=== PATIENT | male | born 1995 | race Caucasian/White ===

== ENCOUNTER 2022-01-07 14:45 | Emergency (ER) | payer OTHER, SELFPAY ==
[2022-01-07 14:51] VITALS: BP 161/88; PULSE 91; RESP 16; TEMP 36.7; O2SAT 99
--- NOTE | 2022-01-07 15:46 | ED_ITS ---
HPI - Eye Problem General Chief complaint: Eye Problems Stated complaint: metal fragments in his eye Time Seen by Provider: 01/07/22 15:03 History of Present Illness HPI Narrative: Patient is a 26-year-old male who presents ER with concerns for metal in his eye. 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 While at work they washed his eye. While driving home he was blinking and had some disruption in his vision. It has since improved. No pain in his eye. No blurred vision or photophobia. Related Data Home Medications Medication Instructions Recorded Confirmed No Home Medications 01/07/22 01/07/22 Allergies Allergy/AdvReac Type Severity Reaction Status Date / Time No Known Allergies Allergy Unknown Verified 01/07/22 15:26 Review of Systems Eyes: Eyes: Reports change in vision (Transient) and Denies photophobia Comments: No eye pain Integumentary/Breasts: Skin/Breast: Denies erythema and Denies rash Neurologic: Denies headache(s) PMFSH Past Medical History Medical History (Updated 01/07/22 @ 15:56 by Mook Morrison MD) Healthy adult male Surgical History Surgical History (Updated 01/07/22 @ 15:54 by Mook Morrison MD) History of appendectomy Social History Social History (Updated 01/07/22 @ 15:54 by Mook Morrison MD) Smoking status: Never smoker Exam Narrative: GENERAL: Well-appearing, well-nourished, and in no acute distress. HEAD: Normocephalic, atraumatic. EYES: PERRLA and EOMI. right eye visualized with magnification and lid eversion performed. No evidence of foreign body or corneal abrasion. Patient has visual acuity is 20/20 in each eye. ENT: Mucous membranes moist. NEURO: Alert and oriented x3. PSYCH: Normal mood and affect. Course Course Emergency Course: Patient informed of exam findings. No pain or change in vision. No evidence of abrasion. Iritis not felt to be the cause of his transient blurred vision that occurred for a couple seconds while blinking. Discharge home. Vital Signs Vital signs: Vital Signs Temperature 98.0 F 01/07/22 14:51 Pulse Rate 91 01/07/22 14:51 Respiratory Rate 16 01/07/22 14:51 Blood Pressure 161/88 H 01/07/22 14:51 Pulse Oximetry 99 01/07/22 14:51 Temperature 98.0 F 01/07/22 14:51 Pulse Rate 91 01/07/22 14:51 Respiratory Rate 16 01/07/22 14:51 Blood Pressure 161/88 H 01/07/22 14:51 Pulse Oximetry 99 01/07/22 14:51 Discharge Plan Discharge Clinical Impression: Transient vision disturbance Patient Disposition: Home, Self-Care Condition: Stable Instructions: Blurred Vision (ED) Additional Instructions: Return to the ER if you have severe pain in your eye, you cannot see, you lose consciousness, or you have additional concerns. Prescriptions: No Action No Home Medications RF: 0 Follow-up/Referrals: PHYSICIAN,DEICER FINISHER [Primary Care Provider] - Naveed Still MD [Physician] - 1 Week
[2022-01-07] MEDS: DACRIOSE EYE IRRIGATION 118 ML BOTTLE (15:50)
[2022-01-07] MEDS: FLUORESCEIN SOD 1 MG/STRIP EACH EYE (15:50)
== END 2022-01-07 16:19 | disposition home or self-care (01) ==
PROVIDERS: Emergency Provider Emergency Medicine
DX: H53.9 Unspecified visual disturbance (principal)
CPT/HCPCS: 99283; A9270

== ENCOUNTER 2022-07-25 04:47 | Emergency (ER) | payer OTHER, SELFPAY ==
[2022-07-25 04:50] VITALS: BP 145/98; PULSE 92; RESP 17; TEMP 36.7; O2SAT 99
--- NOTE | 2022-07-25 06:18 | ED.GENADULT ---
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 Patient was working with a cutting device yesterday when he had some silver fly under his mask into his eye. After that he was having some swelling of his eyelid and irritation to the eye as well as a foreign body sensation. Related Data Allergies Allergy/AdvReac Type Severity Reaction Status Date / Time No Known Allergies Allergy Unknown Verified 07/25/22 04:53 Review of Systems Review of Systems: CONSTITUTIONAL: Denies night sweats. EYES: No eye pain ENT: Denies rhinorrhea CARDIOVASCULAR: Denies palpitations RESPIRATORY: Denies hemoptysis GASTROINTESTINAL: Denies hematemesis GENITOURINARY: Denies hematuria. SKIN: Denies rash MUSCULOSKELETAL: Denies myalgia. NEUROLOGIC: Denies weakness. PSYCHIATRIC: Denies delusions PMFSH Past Medical History Medical History Healthy adult male Surgical History Surgical History History of appendectomy Social History Social History Smoking status: Never smoker Exam Narrative: APPEARANCE: No apparent distress. Head: atraumatic. EYES: EOMI, no pain with extraocular eye movement.patient has eyelid swelling of the left eye, Underneath the upper eyelid there is an 1mm x 1mm area of pus with some irritation of the skin underneath. no significant dye uptake on slit-lamp exam. No flare in the anterior chamber. Intra-ocular pressure was 26. NOSE: Atraumatic NECK: Trachea midline RESPIRATORY: No increased rate of breathing CARDIOVASCULAR: RRR, ABDOMINAL: Non-distended MUSCULOSKELETAl: No obvious deformities NEURO: Alert. Moving 4/4 extremities SKIN:: Warm, dry. Normal color PSYCHIATRIC: Normal affect Course Vital Signs Vital signs: Vital Signs Temperature 98.0 F 07/25/22 04:50 Pulse Rate 92 07/25/22 04:50 Respiratory Rate 17 07/25/22 04:50 Blood Pressure 145/98 H 07/25/22 04:50 Pulse Oximetry 99 07/25/22 04:50 Oxygen Delivery Room Air 07/25/22 04:50 Temperature 98.0 F 07/25/22 04:50 Pulse Rate 92 07/25/22 04:50 Respiratory Rate 17 07/25/22 04:50 Blood Pressure 145/98 H 07/25/22 04:50 Pulse Oximetry 99 07/25/22 04:50 Oxygen Delivery Room Air 07/25/22 04:50 Medical Decision Making MDM Narrative Medical decision making narrative: This is a 26-year-old male presenting ED with foreign body sensation in his left eye. Exam of the eye revealed a small area of irritation on the underneath his upper eyelid. This was removed the patient says that the foreign body sensation is gone. Did not see any dye of uptake on eye exam. He does have mildly elevated intra-ocular pressures. His visual acuity is now normal. Patient will be discharged with 24 hour ophthalmology follow-up. Patient will be given Ocuflox eyedrops as well as a course of Keflex for preseptal cellulitis. Vital Signs Vital Signs: Vital Signs Temperature 98.0 F 07/25/22 04:50 Pulse Rate 92 07/25/22 04:50 Respiratory Rate 17 07/25/22 04:50 Blood Pressure 145/98 H 07/25/22 04:50 Pulse Oximetry 99 07/25/22 04:50 Oxygen Delivery Room Air 07/25/22 04:50 Temperature 98.0 F 07/25/22 04:50 Pulse Rate 92 07/25/22 04:50 Respiratory Rate 17 07/25/22 04:50 Blood Pressure 145/98 H 07/25/22 04:50 Pulse Oximetry 99 07/25/22 04:50 Oxygen Delivery Room Air 07/25/22 04:50 Discharge Plan Discharge Clinical Impression: Foreign body of eyelid, Preseptal cellulitis Patient Disposition: Home, Self-Care Condition: Guarded Prognosis Instructions: Antibiotic Form Additional Instructions: Please
[2022-07-25] MEDS: ACETAMINOPHEN 500 MG TABLET 1000 MG PO (06:40)
[2022-07-25] MEDS: IBUPROFEN 400 MG TABLET 800 MG PO (06:41)
[2022-07-25] MEDS: TETANUS,DIPHTHERIA,AC PERTUSSIS ADULT (0.5 ML) BOOSTRIX IM (06:41)
== END 2022-07-25 06:52 | disposition home or self-care (01) ==
PROVIDERS: Emergency Provider Emergency Medicine
DX: L03.213 Periorbital cellulitis (principal); T15.12XA Foreign body in conjunctival sac, left eye, initial encounter; Z23 Encounter for immunization
CPT/HCPCS: 65205; 65220; 90471; 90715; 99283; A9270

== ENCOUNTER 2023-09-06 18:48 | Emergency (ER) | payer OTHER, SELFPAY ==
--- NOTE | ~2023-09-06 | CT_ITS ---
EXAMINATION: CT brain wo con DATE: 09/06/2023 20:13 INDICATION: Head injury. TECHNIQUE: Computed tomography (CT) of the head was performed without intravenous contrast. The mA wa s adjusted according to patient size. Iterative reconstruction technique was employed. The dose-lengt h product was 681.00 mGy-cm. COMPARISON: None FINDINGS: There is no intracranial hemorrhage, acute infarction, or abnormal intracranial mass lesion . The ventricles are normal in size. The orbits are normal. There is mild mucosal thickening in the p aranasal sinuses. The mastoid air cells are normal. IMPRESSION: 1. Normal brain. Reviewed, dictated and finalized at location E. TOPPER IMPRESSION: 1. Normal brain.
--- NOTE | ~2023-09-06 | CT_ITS ---
EXAMINATION: CT facial & cervical spine wo DATE: 09/06/2023 20:13 INDICATION: Head and neck injury. TECHNIQUE: Computed tomography (CT) of the maxillofacial region and cervical spine was performed with out intravenous contrast. Automated exposure control and iterative reconstruction technique were empl oyed. The dose-length product was 592.32 mGy-cm. COMPARISON: None FINDINGS: MAXILLOFACIAL CT: There is leftward deviation of the nasal septum. No fracture. There is mild mucosal thickening in the paranasal sinuses. The orbits are normal. CERVICAL SPINE CT: Bone alignment is normal. Vertebral body heights are normal. There is mildly decreased disc height at C5-C6. There is mild uncovertebral joint and facet joint osteoarthritis at many levels. At C7-T1, th ere is moderate right and severe left facet joint osteoarthritis. At C7-T1, there is mild left neural foraminal stenosis. There is mild central canal stenosis at C5-C6. IMPRESSION: 1. No fracture. 2. Mild cervical spondylosis. Reviewed, dictated and finalized at location E. 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
[2023-09-06 18:51] VITALS: BP 164/93; PULSE 95; RESP 20; TEMP 37; O2SAT 100
--- NOTE | 2023-09-06 19:48 | ED.GENADULT ---
HPI - General Adult General Chief complaint: Head Injury Stated complaint: facial trauma with loc Time Seen by Provider: 09/06/23 19:37 History of Present Illness HPI narrative: 27-year-old male presenting to the emergency department for evaluation after having a facial injury. 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 Patient is unsure if he had loss of consciousness. Patient does complain of facial pain and does have a contusion with laceration to his upper lip. Patient denies any other pain or injury. Patient states that the accident happened earlier this morning and patient has had 1 episode of nausea and vomiting and had some lightheaded dizziness for approximately 1-2 hours. Patient reports that these symptoms have resolved. Related Data Allergies Allergy/AdvReac Type Severity Reaction Status Date / Time No Known Allergies Allergy Unknown Verified 09/06/23 19:45 Review of Systems Review of Systems: All systems reviewed & are unremarkable except as noted in HPI and below PMFSH Past Medical History Medical History Healthy adult male Surgical History Surgical History History of appendectomy Social History Social History Smoking status: Never smoker Exam Narrative: APPEARANCE: Well appearing, no pain, no distress, well-nourished. HEAD: normocephalic, facial injury. EYES: PERRLA/EOMI, conjunctivae clear. NOSE: Normal no drainage EARS:TMS clear with good light reflex. THROAT: Pharynx clear, no exudate. NECK: Supple. No adenopathy, no masses. RESPIRATORY: Airway patent, respirations nonlabored. Clear to auscultation bilaterally, no rales, rhonchi, wheezing. CARDIOVASCULAR: Regular rate and rhythm without murmurs rubs or gallops. ABDOMINAL: Soft, nontender, nondistended, normal bowel sounds MUSCULOSKELETAL: Moves all extremities. Strength/ROM intact, No edema, No calf tenderness. NEURO: Alert. Cranial nerves II through XII intact. Grossly intact SKIN: Warm, dry. Normal Color Course Course Emergency Course: 27-year-old male presented to emergency department for evaluation after having a facial injury fall. Patient's lip laceration was repaired as described. Patient had negative facial cervical and brain CTs. Patient was updated on results of the imaging and down the plan for suture care. All questions concerns were addressed patient was well-appearing at time of discharge. Vital Signs Vital signs: Vital Signs Temperature 98.6 F 09/06/23 18:51 Pulse Rate 95 09/06/23 18:51 Respiratory Rate 20 09/06/23 18:51 Blood Pressure 164/93 H 09/06/23 18:51 Pulse Oximetry 100 09/06/23 18:51 Oxygen Delivery Room Air 09/06/23 18:51 Temperature 98.6 F 09/06/23 18:51 Pulse Rate 87 09/06/23 21:33 Respiratory Rate 15 09/06/23 21:33 Blood Pressure 145/86 H 09/06/23 21:33 Pulse Oximetry 100 09/06/23 21:33 Oxygen Delivery Room Air 09/06/23 18:51 Procedures Laceration Laceration 1: Site: face and lip Size (cm): 2 Description: linear Depth: simple, single layer Local Anesthetic: lidocaine 1% Amount of anesthesia used (mL): 3 Pre-repair: wound explored, irrigated and irrigated extensively ====== Skin Level ====== Skin layer closed with: nylon Size (cm): 6-0 Number of sutures: 3 ====== Subcutaneous Layer ====== ====== Muscle Layer ====== ====== Tendon Layer ====== Medical Decision Making Differential Diagnosis Differential Diagnosis: Facial fracture, subdural hematoma, subarachnoid, skull fracture, facial laceration, cervical spine fracture Vital Signs Vital Signs: Vital Signs Temperature 98.6 F 09/06/23 18:51 Pulse Rate 95 09/06/23 18:51 Respiratory
[2023-09-06 21:33] VITALS: BP 145/86; PULSE 87; RESP 15; O2SAT 100
== END 2023-09-06 21:35 | disposition home or self-care (01) ==
PROVIDERS: Emergency Provider Emergency Medicine
DX: M47.812 Spondylosis without myelopathy or radiculopathy, cervical region (principal)
CPT/HCPCS: 12011; 70450; 70486; 72125; 99284